=== PATIENT | female | born 1940 | race Two or more races ===

== ENCOUNTER 2022-07-11 17:59 | Emergency (ER) | payer OTHER ==
[~2022-07-11] VITALS: Ht 160 cm; Wt 125.6 kg
== END 2022-07-11 22:48 | disposition home or self-care (01) ==
LOC: ER 17:59
DX: S00.01XA Abrasion of scalp, initial encounter (principal); M54.9 Dorsalgia, unspecified; Z88.8 Allergy status to other drugs, medicaments and biological substances; W18.09XA Striking against other object with subsequent fall, initial encounter; Y93.89 Activity, other specified; Y92.89 Other specified places as the place of occurrence of the external cause; Y99.8 Other external cause status
CPT/HCPCS: 70450

== ENCOUNTER 2024-09-10 11:42 | Emergency (ER) | payer OTHER ==
[~2024-09-10] VITALS: Ht 162.6 cm; Wt 118.0 kg
--- NOTE | 2024-09-10 11:57 | ED.PDOC ---
SOB-HPI HPI Comments HPI: Poor Historian. 83-year-old female presents to emergency department by ambulance from [facility] for evaluation of three-week history of progressively getting worse symptoms of shortness of breath with minimal exertion and generalized weakness. Patient was found with slight hypoxemia in the high 80s/90%. Patient was placed on supplemental oxygen 2 L nasal cannula in her oxygenation is improved. Patient is hypertensive in triage however she says that her blood pressure is always high when they do a the automatic blood pressure cuff because of her history of fibromyalgia but is usually normal. Denies any chest pain or fever Past Medical History: Fibromyalgia, mitral valve prolapse on atenolol. Past Surgical History: Bilateral Knee Replacement Temp:98.7 RR:17 SPO2:97% on 2 Liters HR:64 BP:192/102 Allergies:Iodine REVIEW OF SYSTEMS: CONSTITUTIONAL: Denies acute: fever, diaphoresis, chills, HEAD: Denies acute: headache, photophobia Eyes: Denies acute: Double vision, vision loss, eye pain, eye discharge. EARS: Denies acute: tinnitus, hearing loss, ear discharge, ear pain, THROAT: Denies acute: sore throat, swelling, difficulty swallowing , pain with swallowing, change in voice. NECK: Denies acute: neck pain, neck swelling, stiff neck. HEART: Denies acute : chest pain, palpitations, LUNGS: Denies acute: wheezing, cough, hemoptysis ABDOMEN: Denies acute: abdominal pain, Nausea, Vomiting, diarrhea, melena , hematemesis, hematochezia SKIN: Denies acute: rash, redness, lesions, itchiness. EXTREMITIES: Denies acute: calf pain, numbness, tingling, weakness, denies pain in extremity. Denies acute: Low back pain. Neuro: Denies acute: focal neurological deficit, motor or sensory focal neurological deficit, tremors, seizure like activity, confusion, change in mental status, loss of bowel or bladder function, cauda equina like symptoms. : Denies acute: dysuria, hematuria, flank pain, increase in urinary frequency. PSYCH: Denies acute: hallucination, suicidal ideation, homicidal ideation. FEMALE: Denies acute: abnormal vaginal bleeding, foul odor, unusual discharge. PHYSICAL EXAM: General: -----lcir-co-nsrnogig---acute distress, awake and alert. Head: normocephalic, atraumatic. Neck: supple, trachea is midline, no swelling. Throat: Normal phonation. Eyes:, no erythema, no purulent discharge, no proptosis, no icterus. Heart: regular rate, regular rhythm, no significant murmur appreciated. Lungs: no apparent respiratory distress, Able to speak in full sentences. No wheezing, no rhonchi, no crackles. No stridors Clear to auscultation bilaterally. Abdomen: non tender to palpation, non distended, soft, no guarding, no rebound, + bowel sounds. Obese Neuro: Awake, Alert, oriented to name, self, situation, follows commands GCS=15. Speech is normal. Skin: no petechia, no purpura, no cyanosis, non-pale, not jaundice. Lower extremities: --no - Pitting edema no deformity, no focal swelling, no calf TTP. Makes eye contact. moves all four extremities. Face: no apparent facial droop. ED COURSE: DISCLAIMER: This medical document was created using an electronic medical record system with voice recognition software and computerized dictation system. Although this document has been carefully reviewed, there might still be some phonetic and typographical errors. Occasional wrong-word or "sound-alike" substitutions may have occurred due to the inherent limitations of voice recognition software. These areas are purely typographical due to imperfections of the software [employer] and do not reflect any compromise in the patient's medical care. Please read the chart carefully and recognize, using context, where these substitutions have occurred. 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 History Family History Family History: Reviewed,noncontributory to illness Social History Smoker: Non-Smoker Alcohol: Denies ETOH Use Drugs: Denies Drug Use Lives In: Home X-Ray, Labs, Meds, VS Vital Signs Date Time Temp Pulse Resp B/P (MAP) Pulse Ox O2 Delivery O2 Flow Rate FiO2 09/10/24 12:00 98.2 64 12 197/54 (101) 97 98.2 09/10/24 11:49 79 Lab Test 09/10/24 12:20 09/10/24 12:18 Range/Units White Blood Count 5.9 4.4-10.8 10^3/uL Red Blood Count 4.36 4.0-5.20 10^6/uL Hemoglobin 14.5 12.2-16.2 g/dL Hematocrit 43.7 36.0-46.0 % Mean Corpuscular Volume 100.2 H 80.0-100.0 fL Mean Corpuscular Hemoglobin 33.3 H 28.0-32.0 pg Mean Corpuscular Hemoglobin Concent 33.3 32.0-36.0 g/dL Red Cell Distribution Width 13.3 11.8-14.3 % Platelet Count 184 140-450 10^3/uL Mean Platelet Volume 8.9 6.9-10.8 fL Neutrophils (%) (Auto) 84.5 H 37.0-80.0 % Lymphocytes (%) (Auto) 8.9 L 10.0-50.0 % Monocytes (%) (Auto) 5.8 0.0-12.0 % Eosinophils (%) (Auto) 0.2 0.0-7.0 % Basophils (%) (Auto) 0.6 0.0-2.0 % Neutrophils # (Auto) 5.0 1.6-8.6 10 ^3/uL Lymphocytes # (Auto) 0.5 0.4-5.4 10 ^3/uL Monocytes # (Auto) 0.3 0-1.3 10 ^3/uL Eosinophils # (Auto) 0 0-0.8 10 ^3/uL Basophils # (Auto) 0 0-0.2 10 ^3/uL Nucleated Red Blood Cells 0.0 % D-Dimer, Quantitative 0.47 0.0-0.49 mg/L FEU Sodium Level 142 136-145 mmol/L Potassium Level 3.9 3.5-5.1 mmol/L Chloride Level 105 98-107 mmol/L Carbon Dioxide Level 30 20-31 mmol/L Anion Gap 7 5-15 Blood Urea Nitrogen 14 9-23 mg/dL Creatinine 0.63 0.550-1.02 mg/dL Glomerular Filtration Rate Calc 87 >90 mL/min BUN/Creatinine Ratio 22.2 H 10.0-20.0 Serum Glucose 106 74-106 mg/dL Lactic Acid Level 0.9 0.4-2.0 mmol/L Calcium Level 10.1 8.7-10.4 mg/dL Total Bilirubin 0.6 0.2-1.0 mg/dL Aspartate Amino Transferase (AST) 14 <34 U/L Alanine Aminotransferase (ALT) 9 7-40 U/L Alkaline Phosphatase 67 46-116 U/L Troponin I High Sensitivity 4 </=34 ng/L B-Type Natriuretic Peptide 187.77 0-100 pg/mL Total Protein 7.4 5.7-8.2 g/dL Albumin 4.5 3.2-4.8 g/dL Blood Gas Specimen Type Arterial Blood Gas Sample Site Right radial Blood Gas Patient Temperature 37.0 Arterial Blood Date Drawn [id number] Arterial Blood pH 7.421 7.350-7.450 Arterial Blood Partial Pressure CO2 42.4 32.0-45.0 mmHg Arterial Blood Partial Pressure O2 108.8 H 83.0-108.0 mmHg Arterial Blood HCO3 26.9 21.0-28.0 mmol/L Arterial Blood Oxygen Saturation 98.3 H 94.0-98.0 % Arterial Blood Base Excess 2.2 -2.0-3.0 mmol/L Arterial Blood Oxyhemoglobin 96.3 94.0-98.0 % Arterial Blood Carboxyhemoglobin 1.6 H 0.5-1.5 % Arterial Blood Methemoglobin 0.4 0.0-1.5 % Tushar Test Modified Blood Gas Total Hemoglobin 15.10 12.0-16.0 g/dL Blood Gas Liter Flow 4.00 Blood Gas Modality Nasal cannula FiO2 % 36.0 [place] [id number] Ph: [phone] DIAGNOSTIC IMAGING Diagnostic Imaging Report : [id number] Signed PATIENT: MARYURI BETANCUR ACCT: [id number] UNIT: [id number] : 1940 LOC: ER ROOM / BED: / AGE / SEX: 83 / F ADM STATUS: REG ER SERVICE 1152 ORDERING PHYSICIAN: ANTOLIN YOU DO PROCEDURE(s): CXRP - CHEST PORTABLE REASON: SOB, WEAK ORDER NUMBER(s): [id number], ACCESSION NUMBER(s): [id number] EXAM: XY CHEST PORTABLE HISTORY: SOB, WEAK COMPARISON: None TECHNIQUE: Portable upright AP view of the chest was performed. FINDINGS: No pneumothorax, consolidative infiltrates, or pulmonary edema. The heart is enlarged. IMPRESSION: Cardiomegaly without evidence of acute intrathoracic process. ATED BY: RANI JAMIL MD DICTATED DATE/TIME: 09/10/241246 SIGNED BY: RANI JAMIL MD SIGNED DATE/TIME: 09/10/241246 CC: Time of 1ST Reevaluation: 12:34 (auth [id number] . The case was discussed with the [facility] admitting team (HPI, physical exam, labs and diagnostic tests that were available at the time of disposition, ED course, treatment plan) on the phone. They agreed to transfer the patient to their service by ALS for further evaluation and treatment. ) Reevaluation 1ST: Unchanged Patient Education/Counseling: Diagnosis, Treatment Family Education/Counseling: Other Departure 1 Departure Time of Disposition: 11:56 Impression: Primary Impression: Dyspnea Additional Impressions: Generalized weakness Hypoxemia Disposition: 02 SHORT TERM HOSPITAL Admit to: Tele Discharged With: Self I personally scribed for ANTOLIN YOU DO ([email or web address]) on 09/10/24 at 11:59. Electronically submitted by Yuri Goode ([email or web address]). I personally scribed for ANTOLIN YOU DO ([email or web address]) on 09/10/24 at 13:42. Electronically submitted by Yuri Goode ([email or web address]). ANTOLIN YOU DO Sep 10, 2024 11:57
[2024-09-10 12:25] LABS: Base Excess 2.2 mmol/L (-2.0-3.0)
[2024-09-10 12:41] LABS: Basophils # (auto) 0 10 ^3/uL (0-0.2); Basophils % (auto) 0.6 % (0.0-2.0); Eosinophils # (auto) 0 10 ^3/uL (0-0.8); Eosinophils % (auto) 0.2 % (0.0-7.0); Hematocrit 43.7 % (36.0-46.0); Hemoglobin 14.5 g/dL (12.2-16.2); Lymphocytes # (auto) 0.5 10 ^3/uL (0.4-5.4); Lymphocytes % (auto) 8.9 % (10.0-50.0); Mean Corpuscular Hemoglobin 33.3 pg (28.0-32.0); Mean Corpuscular Hgb Conc. 33.3 g/dL (32.0-36.0); Mean Corpuscular Volume 100.2 fL (80.0-100.0); Monocytes # (auto) 0.3 10 ^3/uL (0-1.3); Monocytes % (auto) 5.8 % (0.0-12.0); Neutrophils % (auto) 84.5 % (37.0-80.0); Platelet Count (auto) 184 10^3/uL (140-450); Red Blood Cells 4.36 10^6/uL (4.0-5.20); Red Cell Distribution Width 13.3 % (11.8-14.3); White Blood Cell 5.9 10^3/uL (4.4-10.8)
--- NOTE | 2024-09-10 12:50 | DVH ---
EXAM: XY CHEST PORTABLE HISTORY: SOB, WEAK COMPARISON: None TECHNIQUE: Portable upright AP view of the chest was performed. FINDINGS: No pneumothorax, consolidative infiltrates, or pulmonary edema. The heart is enlarged. IMPRESSION: Cardiomegaly without evidence of acute intrathoracic process.
[2024-09-10 12:59] LABS: Albumin 4.5 g/dL (3.2-4.8); Alkaline Phosphatase 67 U/L (46-116); Anion Gap 7 (5-15); Aspartate Aminotransferase 14 U/L (<34); BUN/Creatinine Ratio 22.2 (10.0-20.0); Blood Urea Nitrogen 14 mg/dL (9-23); Calcium 10.1 mg/dL (8.7-10.4); Carbon Dioxide 30 mmol/L (20-31); Chloride 105 mmol/L (98-107); Potassium 3.9 mmol/L (3.5-5.1); Sodium 142 mmol/L (136-145); Total Protein 7.4 g/dL (5.7-8.2)
[2024-09-10 13:00] LABS: Bilirubin, Total 0.6 mg/dL (0.2-1.0)
[2024-09-10 13:01] LABS: Alanine Aminotransferase 9 U/L (7-40); Glucose 106 mg/dL (74-106)
--- NOTE | 2024-09-10 18:49 | ECG ---
[facility] Test Date: 2024-09-10 Test Time: 11:49:25 Pat Name: MARYURI BETANCUR Department: ED Room: Gender: F Stubber: rosey : 1940 Requested By: ANTOLIN YOU Order Number: [id number] Reading MD: Shubham Galvan Measurements Intervals [place] Rate: 79 P: 36 MO: 218 QRS: -49 QRSD: 153 T: 87 QT: 452 QTc: 519 Interpretive Statements Sinus tachycardia Multiple ventricular premature complexes Left bundle branch block Baseline wander in lead(s) V4 Electronically Signed On 09-13-2024 21:14:03 PDT by Shubham Galvan Please click the below link to view image of tracing.
[2024-09-10 19:30] VITALS: BP 176/87; PULSE 62; RESP 14; TEMP 98.3; O2SAT 95
== END 2024-09-10 19:30 | disposition short-term general hospital (02) ==
LOC: EDBD 11:42 → ER 11:42
DX: R06.02 Shortness of breath (principal); R53.1 Weakness; R09.02 Hypoxemia; I34.1 Nonrheumatic mitral (valve) prolapse; M79.7 Fibromyalgia; Z88.8 Allergy status to other drugs, medicaments and biological substances; Z91.041 Radiographic dye allergy status; Z96.653 Presence of artificial knee joint, bilateral
CPT/HCPCS: 36415; 36600; 71045; 80053; 82805; 83605; 83880; 84484; 85025; 85379; 93005